=== PATIENT | male | born 1965 | race African-American/Black ===

== ENCOUNTER 2017-12-04 08:15 | Observation (INO) | payer SELFPAY ==
[2017-12-04] MEDS ORDERED: Lorazepam 2 MG/ML VIAL ONE (08:40)
[2017-12-04] MEDS ORDERED: levETIRAcetam In NaCl (Iso-Os) 1,500 MG in Premix Bag 1 BAG IVPB SCH (09:00)
[2017-12-04 09:03] LABS: #Lymphocytes 0.9 thou/uL (1.20-3.40); #Monocytes 1.1 thou/uL (0.11-0.59); #Neutrophils 7.9 thou/uL (1.40-6.50); %Eosinophils 0.3 % (0.0-10.0); %Lymphocytes 9.4 % (21.0-51.0); %Monocytes 10.6 % (0.0-10.0); %Neutrophils 79.6 % (42.0-75.0); Hemoglobin 15.1 g/dL (14.0-18.0); Mean Corpuscular HGB CONC 36.2 g/dL (32.0-36.0); Mean Platelet Volume 6.6 fL (7.4-10.4); Platelet Count 167 thou/uL (130-400); RBC Distribution Width 13.4 % (11.5-14.5); Red Blood Cell (RBC) Count 4.09 mill/uL (4.70-6.10); White Blood Cell (WBC) Count 9.9 thou/uL (4.8-10.8)
[2017-12-04 09:06] LABS: INR-International Normal Ratio 1.1; PTT 28.2 SEC (22.9-36.1); Prothrombin Time 14.2 SEC (12.0-14.7)
[2017-12-04 09:17] LABS: ALT (SGPT) 17 U/L (8-55); AST (SGOT) 38 U/L (5-34); Acetaminophen Less than 6.0 mcg/mL (10.0-30.0); Albumin 4.4 g/dL (3.5-5.0); Alcohol Less than 10 mg/dL (Less than 10); Alkaline Phosphatase 66 U/L (40-150); Anion Gap 18 mmol/L (10-20); BUN (Urea Nitrogen) 6 mg/dL (8.4-25.7); Bilirubin, Total 1.1 mg/dL (0.2-1.2); Calc. Creatinine Clearance 0 mL/min (70-130); Calcium 9.1 mg/dL (7.8-10.44); Carbon Dioxide 22 mmol/L (22-29); Chloride 95 mmol/L (98-107); Estimated GFR-MDRD Greater than 90; Globulin 4.4 g/dL (2.4-3.5); Glucose 96 mg/dL (70-105); Potassium 3.7 mmol/L (3.5-5.1); Protein, Total 8.8 g/dL (6.0-8.3); Salicylate Less than 8.0 mg/dL (15.0-30.0); Sodium 131 mmol/L (136-145)
[2017-12-04 10:43] LABS: Amphetamine Not Detected (NotDetected); Barbiturates Screen Not Detected (NotDetected); Benzodiazepine Screen Detected (NotDetected); Cocaine Metabolite Screen Not Detected (NotDetected); Medtox Control Line Valid? VALID (VALID); Medtox Reader # READER 1; Methadone Not Detected (NotDetected); Methamphetamine Not Detected (NotDetected); Opiate Screen Not Detected (NotDetected); Oxycodone Screen Not Detected (NotDetected); Phencyclidine (PCP) Not Detected (NotDetected); THC/Cannabinoid Screen Not Detected (NotDetected); Tricyclic Screen Not Detected (NotDetected)
[2017-12-04] MEDS ORDERED: Labetalol HCl 100 MG/20 ML VIAL ONE (10:56)
[2017-12-04] MEDS ORDERED: Sodium Chloride 0.9% 100 ML ONE (10:56)
[2017-12-04] MEDS ORDERED: cefTRIAXone\\ROCEPHIN 2 GM VIAL ONE (10:56)
[2017-12-04 11:04] LABS: Bilirubin Negative (Negative); Blood, Urine Moderate (Negative); Clarity CLEAR (Clear); Glucose, Urine (Dipstick) Negative (Negative); Leukocyte Negative (Negative); Nitrite Negative (Negative); Protein, Urine (Dipstick) Trace mg/dL (Neg-Trace); Specific Gravity, Urine 1.008 (1.002-1.036); pH, Urine 7.5 (5.0-9.0)
[2017-12-04 11:05] LABS: Bacteria/HPF None Seen HPF (None Seen); Hyaline Casts/LPF 0-3 HYALINE CAST LPF (0-3 Hyaline); RBC/HPF None Seen HPF (0-3); Squamous Epithelial None Seen HPF (0-3); WBC/HPF None Seen HPF (0-3)
--- NOTE | 2017-12-04 11:34 | RAD ---
CHEST ONE VIEW: History: 52-year-old male with history of seizure. FINDINGS: Monitor leads overlie the chest. Heart size is within normal limits. No confluent pneumonia, overt ed adelita, or pleural effusion. IMPRESSION: No acute intrathoracic disease. POS: [facility]
[2017-12-04 12:06] VITALS: BMI 26.6
[2017-12-04] MEDS ORDERED: Acetaminophen 325 MG TAB PO PRN (12:09)
[2017-12-04 12:59] LABS: Osmolality, Urine 416 mOsm/kg (300-900)
[2017-12-04 13:04] LABS: Sodium, Urine 168 mmol/L (Not Available)
[2017-12-04 13:11] LABS: Magnesium 1.7 mg/dL (1.6-2.6)
[2017-12-04] MEDS: Nicotine 14 MG PATCH TD SCH (13:19)
[2017-12-04 13:27] LABS: Phosphorus 1.6 mg/dL (2.3-4.7)
--- NOTE | 2017-12-04 14:15 | PDOC.FPRHP ---
- History of Present Illness Chief Complaint: Seizures History of Present Illness: Mr. Guan presents from [place] ER for status epilepticus. Significant other gives history, as pt is unable. Pt had 3 seizures before EMS was called. They were Tuesday at 20:00, 22:00 and 23:30. First two lasted 30 min. Third one lasted about one hour. Patient did not return to baseline in between each seizure. This was unusual because typically he comes out of one after 30 minutes. He couldn't talk and was staring, not responsive. Pt had another seizure with paramedics which was with 1 mg ativan. Pt has not been sick or had any complaints before this episode. Last seizure was 08/03/2018. Last time hospitalized for seizures was about 1 yr ago. Patient has longtime history of seizures, on keppra, supposed to take it BID. , Macey, knows he takes it every morning but unsure about pm dose. Pt has history of alcohol abuse. 3-6 beers/day. Had one beer yesterday. Has history of schizophrenia and bipolar. He hides medications/snacks etc from . Because of this, she is unsure of all his medications. At baseline, he often must be reminded to shower etc. Pt is trying to apply for disability. Cannot afford medications. ED Course: CT head ([place]), 500 keppra, 1mg ativan, 1.5g keppra, vanc/rocephin - Allergies/Adverse Reactions Allergies Allergy/AdvReac Type Severity Reaction Status Date / Time lisinopril Allergy Unverified 12/04/17 08:45 Penicillins Allergy Unverified 12/04/17 08:45 - Home Medications Medication Instructions Recorded Confirmed Type HYDROcodone/Acetaminophen 1 each PO Q6HR PRN 12/04/17 12/04/17 History [Hydrocodone-Acetamin 10-325 mg] OLANZapine [ZyPREXA] 5 mg PO DAILY 12/04/17 12/04/17 History amLODIPine Besylate [Norvasc] 10 mg PO DAILY 12/04/17 12/04/17 History levETIRAcetam [Keppra] 500 mg PO BID 12/04/17 12/04/17 History - History PMHx:HTN, chronic back pain 2/2 scoliosis, epileptic seizures, bipolar, schizophrenia PSHx: Unknown FHx:Unknown Social: Smoker, 1PPD for >9yrs. 3-6 beers per day, not use other liquor like in the past. No drug use. - Review of Systems General: reports: fatigue. denies: fever/chills, night sweats Eyes: denies: eye pain, vision changes ENT: denies: nasal congestion, rhinorrhea Respiratory: denies: cough, shortness of breath Cardiovascular: denies: chest pain, palpitation Gastrointestinal: denies: nausea, vomiting, diarrhea, abdominal pain Genitourinary: reports: incontinence (during seizure). denies: dysuria Skin: denies: rashes, lesions Musculoskeletal: reports: pain (back and neck), tenderness Neurological: reports: seizure, weakness Psychological: denies: anxiety, depression - Vital signs BP: 145/97 HR: 99 RR: 16 Tmax: 98.4 Pox: 99% on RA Wt: 81 kg - Physical Exam Constitutional: other (Lethargic, with back and neck pain, oriented only to person. Could not answer all questions appropriately.) HEENT: normocephalic and atraumatic, PERRLA, grossly normal vision, grossly normal hearing, MMM, oropharynx clear, other (lesions on both sides of tongue from biting during seizure) Heart: RRR, normal S1/S2, no murmurs/rubs/gallops, pulses present Lungs: CTAB, no respiratory distress Abdomen: soft, bowel sounds present, other (Diffusely TTP) Musculoskeletal: normal structure, normal tone, ROM grossly normal Neurological: CN II-XII intact, normal sensation Skin: capillary refill <2 seconds Heme/Lymphatic: no unusual bruising or bleeding, no purpura FMR H&P: Results - Labs Result Diagrams: 12/04/17 08:50 12/04/17 08:50 Lab results: WBC 9.9 thou/uL (4.8-10.8) 12/04/17 08:50 Hgb 15.1 g/dL (14.0-18.0) 12/04/17 08:50 Hct 41.8 % (42.0-52.0) L 12/04/17 08:50 MCV 102.0 fL (78.0-98.0) H 12/04/17 08:50 Plt Count 167 thou/uL (130-400) 12/04/17 08:50 Neutrophils % 79.6 % (42.0-75.0) H 12/04/17 08:50 Sodium 131 mmol/L (136-145) L 12/04/17 08:50 Potassium 3.7 mmol/L (3.5-5.1) 12/04/17 08:50 Chloride 95 mmol/L (98-107) L 12/04/17 08:50 Carbon Dioxide 22 mmol/L (22-29) 12/04/17 08:50 BUN 6 mg/dL (8.4-25.7) L 12/04/17 08:50 Creatinine 0.84 mg/dL (0.6-1.3) 12/04/17 08:50 Glucose 96 mg/dL (70-105) 12/04/17 08:50 Calcium 9.1 mg/dL (7.8-10.44) 12/04/17 08:50 Total Bilirubin 1.1 mg/dL (0.2-1.2) 12/04/17 08:50 AST 38 U/L (5-34) H 12/04/17 08:50 ALT 17 U/L (8-55) 12/04/17 08:50 Alkaline Phosphatase 66 U/L (40-150) 12/04/17 08:50 Ammonia 37 umol/L (18-72) 12/04/17 08:50 Serum Total Protein 8.8 g/dL (6.0-8.3) H 12/04/17 08:50 Albumin 4.4 g/dL (3.5-5.0) 12/04/17 08:50 Urine Ketones 15 mg/dL (Negative) H 12/04/17 10:22 Urine Blood Moderate (Negative) H 12/04/17 10:22 Urine Nitrite Negative (Negative) 12/04/17 10:22 Ur Leukocyte Esterase Negative (Negative) 12/04/17 10:22 Urine RBC None Seen HPF (0-3) 12/04/17 10:22 Urine WBC None Seen HPF (0-3) 12/04/17 10:22 Ur Squamous Epith Cells None Seen HPF (0-3) 12/04/17 10:22 Urine Bacteria None Seen HPF (None Seen) 12/04/17 10:22 - Radiology Interpretation CT scan - head Status: report reviewed by me (No acute process) Chest x-ray Status: report reviewed by me (no acute disease) FMR H&P: A/P - Problem List (1) Status epilepticus Current Visit: Yes Status: Acute Code(s): G40.901 - EPILEPSY, UNSP, NOT INTRACTABLE, WITH STATUS EPILEPTICUS (2) HTN (hypertension) Current Visit: Yes Status: Acute Code(s): I10 - ESSENTIAL (PRIMARY) HYPERTENSION (3) Hyponatremia Current Visit: Yes Status: Acute Code(s): E87.1 - HYPO-OSMOLALITY AND HYPONATREMIA (4) Alcohol abuse Current Visit: Yes Status: Acute Code(s): F10.10 - ALCOHOL ABUSE, UNCOMPLICATED (5) Tobacco abuse Current Visit: Yes Status: Acute Code(s): Z72.0 - TOBACCO USE - Plan Status epilepticus -pt has history of epileptic seizures. Unsure if taking keppra as prescribed. Consider meds vs alcohol withdrawal vs infection as possible contributory factors. Pt had one isolated fever 100.9 in ER, along with HTN and tachycardia. LP attempted but unsuccessful in ER. Patient does not have signs of meningismus. Vital sign abnormality could be from seizures. Considering no WBC elevation, no current concern for infection. Home medications are unknown. Reported pharmacy called which only had prescription for norco 10 and amlodipine (not filled). Unsure of home keppra dose or where pt is getting it. Pt received Keppra in ED so will not check keppra level. -CT head negative for acute process -will need to confirm meds in the morning -BMP in am -Consulted neurology. Greatly appreciate recommendations. -scheduled keppra -Mag, phos ordered -TSH normal -one dose vanc/rocephin in ER, discontinued -drug screen + for benzos HTN -systolic 170s on admission -was prescribed amlodipine 5mg daily, but did not fill this prescription -started on amlodipine, will monitor BPs Hyponatremia -Na+ 131 on admission -ordered studies to calculate Fena Alcohol abuse -3-6 beers daily. last drink 12/03. No known history of alcohol withdrawal -ASE protocol initiated Tobacco abuse -nicotine patch FMR H&P: Upper Level - Pertinent history 52M presents with cc of seizure. He had 3 seizure the previous day, lasting from 30 min to 1 hour. His described it as a seizure with jerking movement and a postictal state where he was confused. His last seizure was successfully treated with 1 mg of ativan by EMS. He has had seizure in the past requiring hospitalization. His states he takes Keppra BID, but is unsure if he is taking it as directed. When his pharmacy was called, they did not find any records of Keppra being dispensed. His history is pertinent for alcohol abuse 3-6 beers a day. His last beer was yesterday. His psych history is pertnient for schizophrenia and bipolar which he supposedly takes Zyprexa. Pharmacy could not find any record of that med. At baseline, his has to remind him to shower. See Repairer Controller Tester note ROS, PMHx, PShx, Social Hx, FHx and allergies. Physical Exam: Gen: Lethargic at time, and occasional inappropriate answer, but arousable. Post ativan treatment HEENT: No obvious trauma, PERRLA, grossly normal vision and hearing. Tongue with laceration on right side, hemostatic CV: RRR with normal s1/s2. No MGR Resp: CTA, no resp distress Abd: Soft, no guarding, normoactive MSK: Normal structure, tone Neuro: CN II-XII intact, normal sensation and strength 5/5 in upper and lower limb Pertinent Lab/Imaging Na 131 Glucose 96 [address]BC [address] Head: No acute abnormalities A/P 1. Reported Status epilepticus - Patient with history of seizure who had seizure and resolved with ativan administration. - Consider infection but no sign on exam of meningitis, without rigidity, improving of clinical condition after ativan. DC abx at this time. - Consider medication noncompliance. Start on Keppra. Unknown home dose. Advised to bring in medication bottle from home. - Consult Neurology for recs. Obs on stroke floor. 2. HTN - Elevated BP in ER, received 1x dose of labetalol. - Start patient on amlodipine, based on patient's pharmacy list 3. Hyponatremia - NA 131 on admission - Consider beer potomania, dehydration - Order FENA and osm study. 4. Alcohol abuse - 3 to 6 alcohol daily with last known drink day prior to admission. - ASE protocol. 5. Tobacco abuse - Nicotine patch, advise cessation - Plan Date/Time: 12/04/17 1410 I, [Santosh Ly], have evaluated this patient and agree with findings/plan as outlined by management retail intern resident. Pertinent changes/additions are listed here.
[2017-12-04] MEDS ORDERED: Amlodipine 5 MG TAB PO SCH (15:00)
[2017-12-04] MEDS ORDERED: Lorazepam 2 MG/ML VIAL SLOW IVP PRN (15:46)
[2017-12-04] MEDS: Multivitamins, Adult 10 ML, Folic Acid 1 MG, Thiamine HCl 100 MG in Dextrose 5 %-0.45 %... IV SCH (18:26)
[2017-12-04] MEDS: HYDROcodone/Acetaminophen 10/325 mg Tablet PO PRN (18:30)
[2017-12-04] MEDS: levETIRAcetam 500 MG TAB PO SCH (20:48)
[2017-12-04] MEDS ORDERED: levETIRAcetam 500 MG TAB PO SCH ×2 (21:00)
--- NOTE | 2017-12-04 21:53 | ADD-HP ---
ADDENDUM Please see the notes from Dr. Mack for which I agree. The patient was seen, evaluated, examined, and discussed with the residents. HISTORY OF PRESENT ILLNESS: This gentleman came in with basically multiple seizures last night. It is unclear if he is really compliant on his medicines. There is also some question if he may actuall y be withdrawing from alcohol, as his level was basically 0 and it sounds like he may drink 6 drinks a day, but he is very postictal in between these seizures, was taken to ER out of town and given Kepp ra, and then eventually was given more Keppra here. There was some concern about meningitis, althoug h he has had no headaches, neck pain other than chronic neck pain, or major fever, but in ER here, he had slight fever of 100.4. So, he was given vancomycin and Keppra, but he is describing no fever or any infectious type issues here. PAST MEDICAL HISTORY: Really otherwise is negative other than this, although there is some question about the possibility of him being schizophrenic or bipolar, but he is not a very good historian. MEDICATIONS: Xarelto, unclear exactly what he is on other than Keppra, but it sounds like he may be taking daily instead of twice daily. PAST SURGICAL HISTORY: All per the resident's history and physical. FAMILY HISTORY: All per the resident's history and physical. REVIEW OF SYSTEMS: All per the resident's history and physical. PHYSICAL EXAMINATION: VITAL SIGNS: Afebrile. Vital signs were stable. GENERAL: Alert and oriented x3. A little groggy, but certainly making sense. No apparent distress. HEENT: Within normal limits. CHEST: Clear. CARDIAC: Regular rate and rhythm. NEUROLOGIC: Currently is normal. LABORATORY AND X-RAY FINDINGS: Labs were reviewed. Pretty much negative other than sodium being a l ittle bit low at 131, but no elevated white count. ASSESSMENT: Seizure disorder and status epilepticus, now resolved. PLAN: Plan is to continue home Keppra and we will follow levels and I will get Neurology's opinion o n this. Again, we need to watch him for alcohol withdrawal and that why lorazepam ordered as needed and otherwise, I do not think there is any reason to consider this meningitis, so the antibiotics bradley greene started in the ER were discontinued.
[2017-12-05] MEDS: HYDROcodone/Acetaminophen 10/325 mg Tablet PO PRN (03:48)
--- NOTE | 2017-12-05 06:07 | PDOC.FM ---
- Subjective Subjective: 52 yo M admitted for status epilepticus. Feeling well this morning, back pain improved with hydrocodone. Med list was brought in last night, includes amlodipine 10, keppra 500 BID, olanzapine 5, and hydrocodone. He is more alert and oriented this morning and says he does not remember his seizures. Says his last seizure was 4 months ago. He also complains of a sore leg and says he bit his tongue during the seizures, and his mouth is sore. - Objective Vital Signs & Weight: Vital Signs (12 hours) Temp Pulse Resp BP Pulse Ox 12/05/17 04:00 98.0 F 87 16 129/82 96 12/05/17 00:00 98.1 F 89 16 118/71 97 12/04/17 20:00 98.2 F 95 16 114/73 96 Weight Weight 83.325 kg I&O: 12/03/17 12/04/17 12/05/17 06:59 06:59 06:59 Intake Total 700 Balance 700 Result Diagrams: 12/04/17 08:50 12/05/17 11:40 <Anne Stevenson - Last Filed: 12/05/17 14:15> - Objective Vital Signs & Weight: Vital Signs (12 hours) Temp Pulse Resp BP Pulse Ox 12/05/17 19:26 98.3 F 86 20 136/86 97 12/05/17 15:22 98.5 F 95 20 142/92 H 99 12/05/17 11:50 98.4 F 83 20 116/78 97 Weight Weight 83.325 kg I&O: 12/04/17 12/05/17 12/06/17 06:59 06:59 06:59 Intake Total 1050 Output Total 400 450 Balance 650 -450 Result Diagrams: 12/04/17 08:50 12/05/17 11:40 <Lorena Lozada - Last Filed: 12/05/17 21:08> Phys Exam - Physical Examination Constitutional: NAD AxO3 HEENT: PERRLA, moist MMs, sclera anicteric Neck: no nodes, supple Respiratory: no rales, no rhonchi, wheezing present Cardiovascular: RRR, no significant murmur Gastrointestinal: soft, no distention Musculoskeletal: no edema, pulses present Neurological: normal sensation, moves all 4 limbs Psychiatric: normal affect, A&O x 3 Skin: cap refill <2 seconds <Anne Stevenson - Last Filed: 12/05/17 14:15> Dx/Plan - Plan Plan: 1. Status epilepticus -Pt gives hx of taking keppra 500 BID and dilantin. Unable to confirm this with the pharmacy he mentioned. They do not have those meds on records and say he has not fillled any prescriptions there in a year. Need to confirm with pt that this is the pharmacy he is using. -CT head negative for acute process - CSF was unable to be obtained. Pt does not have meningismus at this time. -Consulted neurology. Appreciate recommendations. -scheduled keppra -Mag - 1.7, phos 1.6 --- see problem #7 below. -TSH normal -one dose vanc/rocephin in ER, discontinued -drug screen + for benzos (which he was given in ED) - At this time patient is alert and oriented x3. 2. HTN -systolic 170s on admission, 1x dose labetolol in ED -was started on amlodipine, based on patient's pharmacy list -will monitor BPs, currently stable 3. Hyponatremia -Na 131 on admission -Consider beer potomania, dehydration 4. Alcohol abuse -3-6 beers daily. last drink day prior to admission. No known history of alcohol withdrawal -ASE protocol initiated 5. Tobacco abuse -nicotine patch, advise cessation 6. Hypokalemia -Replaced with 40 of K -redraw BMP this afternoon 7. Hypophosphatemia -Phos: 1.6 -replaced with phos nak -Redraw BMP 8. Post-renal obstruction -Urine showed high ketones and was positive for moderate blood -Fena shows 4.1%, which indicates a post-renal cause -In/out liriano caths -Nursing communication to do serial bladder scans for post cath residuals -Strict I/Os <Anne Stevenson - Last Filed: 12/05/17 14:15> Attending Addendum - Attending Addendum Date/Time: 12/05/17 1012 I personally evaluated the patient and discussed the management with Dr. Bird I agree with the History, Examination, Assessment and Plan documented above with any addition or exceptions noted below- Patient without complaints. No further seizures since admission. Afebrile VSS. A/P: 1) Seizure disorder- patient on keppra and dilantin though states that he has not been on the dilantin for about 2-3 months. Loafed with keppra in ER and will resume hime dose. Will also restart dilantin. Case management to assist with transition to [facility]. <Lorena Lozada - Last Filed: 12/05/17 21:08>
[2017-12-05 06:27] LABS: Anion Gap 13 mmol/L (10-20); BUN (Urea Nitrogen) 5 mg/dL (8.4-25.7); Calc. Creatinine Clearance 111 mL/min (70-130); Calcium 8.8 mg/dL (7.8-10.44); Carbon Dioxide 27 mmol/L (22-29); Chloride 94 mmol/L (98-107); Estimated GFR-MDRD Greater than 90; Glucose 85 mg/dL (70-105); Sodium 131 mmol/L (136-145)
[2017-12-05 06:29] LABS: Potassium 2.7 mmol/L (3.5-5.1)
[2017-12-05] MEDS ORDERED: Potassium Chloride 20 MEQ TAB PO SCH ×2 (06:45→15:00)
[2017-12-05] MEDS: levETIRAcetam 500 MG TAB PO SCH ×2 (08:58→20:57)
[2017-12-05] MEDS: Amlodipine 5 MG TAB PO SCH (08:58)
[2017-12-05] MEDS: Enoxaparin Sodium 40 MG/0.4 ML SYRINGE SC SCH (08:58)
[2017-12-05 12:11] LABS: Anion Gap 12 mmol/L (10-20); BUN (Urea Nitrogen) 6 mg/dL (8.4-25.7); Calc. Creatinine Clearance 91 mL/min (70-130); Calcium 9.2 mg/dL (7.8-10.44); Carbon Dioxide 28 mmol/L (22-29); Chloride 95 mmol/L (98-107); Estimated GFR-MDRD 85; Glucose 69 mg/dL (70-105); Potassium 3.4 mmol/L (3.5-5.1); Sodium 132 mmol/L (136-145)
[2017-12-05] MEDS: Nicotine 14 MG PATCH TD SCH (14:13)
--- NOTE | 2017-12-05 16:41 | PDOC.EVN ---
Event Note - Event Note Event Note: Discussed further with patient where he is filling his prescriptions. Pt states that [facility] in [place] is assisting his payments for his medications besides his narcotics, and he fills them at [facility] on [address] in [place]. He also states he hasn't taken his dilantin for about 2 months because he started feeling dizzy on it. The pharmacy consultant confirmed that he is filling prescriptions for 100 mg dilantin TID, and Keppra 500 BID and last filled his dilantin September 21 for a 3mo supply. His regular doctor is Claudio Francis, and his psychiatrist is Dr. Elias at [facility]. Pt wishes to transition his care to [facility] because of his recent move.
[2017-12-05] MEDS: Multivitamins, Adult 10 ML, Folic Acid 1 MG, Thiamine HCl 100 MG in Dextrose 5 %-0.45 %... IV SCH (17:59)
--- NOTE | 2017-12-06 00:31 | CON ---
NEUROLOGIC CONSULTATION DATE OF CONSULTATION: 12/05/2017 CONSULTING PHYSICIAN: [facility]. IMPRESSION: 1. Chronic epilepsy. 2. History of closed head injury. PLAN: 1. Continue current doses of Dilantin and Keppra. 2. The patient can follow up with his neurologist in [place]. HISTORY OF PRESENT ILLNESS: Mr. Guan is a 52-year-old -[place] man with a past history of seizures dating back 7 years. He was injured on the job around 11 years ago when he was knocked unc onscious by a piece of equipment. He reportedly stayed in the hospital, but 2 months for rehabilitat ion and recovery. He had his first seizure 7 years ago and has been [place] [facility] [place] [facility] [place]. He reports being compliant with his medication, though at times, he has sandoval e difficulty obtaining it due to financial circumstances. He drinks on occasion and reports the last time he had anything to drink was 11/29. He came in after having a witnessed seizure. He was broug ht in by the [place] ambulance to the hospital. He had another seizure in the emergency room that w as witnessed by the ER physician. I was loaded with an extra 2000 mg of Keppra. He was admitted for observation and has been clinically stable since admission. ALLERGIES: LISINOPRIL, PENICILLIN. PAST MEDICAL HISTORY: As listed above, also includes hypertension. SOCIAL HISTORY: Occasional alcohol use, but no illicit drug use. FAMILY HISTORY: Noncontributory. REVIEW OF SYSTEMS: No complaint of headache, nausea, vomiting, vertigo, chest pain, or shortness of breath. PHYSICAL EXAMINATION: GENERAL: He is a well-nourished middle-aged man in no distress. HEENT: Pupils are equal and reactive. Conjunctivae clear. Oropharynx clear. NECK: Supple. EXTREMITIES: No cyanosis, clubbing, or edema. NEUROLOGIC: He is alert and appropriate. His speech is fluent and clear. Cranial nerves II through XII are intact. Motor exam showed symmetric strength. There is no tremor or dysmetria present. Th ere was no asterixis or tremor present. Sensation is intact to light touch. He can walk independent ly. IMAGING: CT scan of the brain without contrast was unremarkable. LABORATORY STUDIES: Reviewed. SUMMARY: This is a middle-aged man with a longstanding history of seizures. He had two breakthrough seizures prior to admission. He has been given an extra loading dose of Keppra. He seems to be cli nically stable. I would leave the management of his medications to his primary neurologist.
--- NOTE | 2017-12-06 06:03 | PDOC.FM ---
- Subjective Subjective: Pt ready to go home. Pt concerned about ride home. Told him he will likely go today, but needs to talk with case management first. Wish GERRY to [facility]. Will see case management today. Eating and drinking well, voiding normally. Labs stable. - Objective Vital Signs & Weight: Vital Signs (12 hours) Temp Pulse Resp BP Pulse Ox 12/06/17 03:10 98.4 F 84 20 133/83 97 12/06/17 00:20 98.5 F 110 H 20 141/101 H 93 L 12/05/17 20:57 98.5 F 110 H 20 12/05/17 19:26 98.3 F 86 20 136/86 97 Weight Weight 83.597 kg I&O: 12/04/17 12/05/17 12/06/17 06:59 06:59 06:59 Intake Total 1050 Output Total 400 450 Balance 650 -450 Result Diagrams: 12/04/17 08:50 12/06/17 06:03 <Anne Stevenson - Last Filed: 12/06/17 09:20> - Objective Vital Signs & Weight: Vital Signs (12 hours) Temp Pulse Resp BP BP Pulse Ox 12/06/17 09:06 86 128/90 12/06/17 08:59 98.5 F 86 20 12/06/17 07:28 98.5 F 86 20 128/90 99 Weight Weight 83.597 kg I&O: 12/05/17 12/06/17 12/07/17 06:59 06:59 06:59 Intake Total 1050 1112 Output Total 400 450 Balance 650 662 Result Diagrams: 12/04/17 08:50 12/06/17 06:03 <Lorena Lozada - Last Filed: 12/06/17 16:49> Phys Exam - Physical Examination Constitutional: NAD HEENT: moist MMs Neck: no nodes, supple Respiratory: no wheezing, no rales, no rhonchi, clear to auscultation bilateral Cardiovascular: RRR, no significant murmur, no rub Gastrointestinal: soft, no distention, positive bowel sounds Musculoskeletal: pulses present Neurological: moves all 4 limbs Psychiatric: normal affect, A&O x 3 Skin: no rash, normal turgor, cap refill <2 seconds <Anne Stevenson - Last Filed: 12/06/17 09:20> Dx/Plan - Plan Plan: 1. Status epilepticus, stable -Pt gives hx of taking keppra 500 BID and dilantin 100 mg TID. Able to confirm with [facility] pharmacy. -CT head negative for acute process - CSF was unable to be obtained. Pt does not have meningismus at this time. -Consulted neurology. Neurology does not wish to see him at this time due to compliance issues. -scheduled keppra and dilantin -TSH normal -one dose vanc/rocephin in ER, discontinued -drug screen + for benzos (which he was given in ED) 2. HTN -systolic 170s on admission, 1x dose labetolol in ED -was started on amlodipine, based on patient's pharmacy list -will monitor BPs, currently stable 3. Hyponatremia -Na 131 on admission -Consider beer potomania, dehydration 4. Alcohol abuse -3-6 beers daily. last drink day prior to admission. No known history of alcohol withdrawal -ASE protocol initiated 5. Tobacco abuse -nicotine patch, advise cessation 6. Hypokalemia -Replaced with 40 of K (12/05) -Improved today at 3.4 7. Hypophosphatemia -Phos: 1.6 on 12/05 -replaced with phos nak -Stable at 2.9 8. Post-renal obstruction -Urine showed high ketones and was positive for moderate blood -Fena shows 4.1%, which indicates a post-renal cause -In/out liriano caths with Serial bladder scan showed post void residual of 20 cc , so no urinary retention suspected at this time. -Strict I/Os Status: may discharge today, after seeing case management. Code: Full code <Anne Stevenson - Last Filed: 12/06/17 09:20> Attending Addendum - Attending Addendum Date/Time: 12/06/17 8007 I personally evaluated the patient and discussed the management with Dr. Johnna Stevenson I agree with the History, Examination, Assessment and Plan documented above with any addition or exceptions noted below- Patient denies any complaints. Wants to go home. Afebrile VSS. A/P: 1) Seizure d/o- continue keppra and dilantin. Stressed importance of needing both medications. Information for local resources for new PCP given to pateint as well as medication assistance. <Lorena Lozada - Last Filed: 12/06/17 16:49>
[2017-12-06 06:24] LABS: Anion Gap 10 mmol/L (10-20); BUN (Urea Nitrogen) 5 mg/dL (8.4-25.7); Calc. Creatinine Clearance 130 mL/min (70-130); Calcium 9.1 mg/dL (7.8-10.44); Carbon Dioxide 26 mmol/L (22-29); Chloride 100 mmol/L (98-107); Estimated GFR-MDRD Greater than 90; Glucose 98 mg/dL (70-105); Potassium 3.4 mmol/L (3.5-5.1); Sodium 133 mmol/L (136-145)
[2017-12-06 07:45] VITALS: BP 128/90; TEMP 98.5
[2017-12-06] MEDS: levETIRAcetam 500 MG TAB PO SCH (09:06)
[2017-12-06] MEDS: Amlodipine 5 MG TAB PO SCH (09:06)
[2017-12-06] MEDS: Enoxaparin Sodium 40 MG/0.4 ML SYRINGE SC SCH (09:07)
--- NOTE | 2017-12-07 11:30 | DIS-2 ---
DATE OF ADMISSION: 12/04/2017 DATE OF DISCHARGE: 12/06/2017 RESIDENT: Anne Stevenson M.D. ADMITTING ATTENDING: Dr Guillermo Raines DISCHARGE ATTENDING: Dr. Lorena Lozada NEUROLOGIST: Dr. Shawn Damon on 12/05/2017. PROCEDURES: 1. Chest x-ray on 12/04/2017. Impression: No acute intrathoracic disease. 2. A 12-lead EKG. Impression: Sinus tachycardia on 12/04/2017. PRIMARY DIAGNOSIS: Status epilepticus with history of seizures. SECONDARY DIAGNOSES: 1. Hyponatremia. 2. Hypophosphatemia. 3. Alcohol abuse. 4. Hypertension. 5. Chronic back pain. 6. Scoliosis. 7. Bipolar. 8. Schizophrenia. 9. Tobacco abuse. DISCHARGE MEDICATIONS: 1. Keppra 500 mg p.o. b.i.d. 2. Olanzapine 5 mg p.o. daily. 3. Hydrocodone/acetaminophen 10/325 mg 1 p.o. q.6h. p.r.n. 4. Amlodipine 10 mg p.o. daily. 5. Dilantin 100 mg t.i.d. p.o. DISCONTINUED MEDICATIONS: 1. Vancomycin, 12/04/2017-12/04/2017. 2. Rocephin, 12/04/2017 to 12/04/2017. HISTORY OF PRESENT ILLNESS AND HOSPITAL COURSE: This is a 52-year-old male presenting from [facility] [place] [facility] for status epilepticus. Significant other gave his history as the patient was unavailable. The patient had 3 seizures before ambulance was called. The patient did not return to baseline in between each seizure, this was unusual for him. He was given Ativan. Normally he is on Keppra and Dilantin for his seizures. His last seizure for which he was hospitalized was 1 year ago. The patient has a history of alcohol abuse, drinking 3-6 beers a day. He also has a history of schizophrenia and bipolar. He had a CT of his head in [place] which was negative. The patient was given Ativan and Keppra. He was also thought to have meningitis, but did not have nuchal rigidity so an LP was attempted, but was not able to get any CSF. He was covered for bacterial meningitis with Rocephin and vancomycin. He was admitted to observation for further workup treatment and a neuro consultation. Per the ED, he had more than 4 seizures in 24 hours without a clear return to baseline. Inpatient his home medicines were reconfirmed. He had stopped taking Dilantin for approximately 2 months because he reported feeling dizzy. He discontinued it on his own volition. He was also hypertensive on admission to the ER, so he had been given 1 dose of labetalol. He was restarted on his home amlodipine. There was also concern for hyponatremia. Sodium was 131 on admission. He reported drinking a lot of water and so we considered that maybe he had beer potomania. He also reported drinking 3-6 beers daily, but he has no known history of alcohol withdrawal and does not appear to show symptoms while inpatient. He was also treated for hypokalemia with 40 mEq of potassium and hypophosphatemia with N acetylcysteine. There was also concern for post-renal obstruction because his fractional excretion of sodium showed a 4.1% which indicated a possible post-renal cause. They did some serial bladder scans, but he did not have any residuals. Because of a recent move he desired to transition his care to [place] for both his psych as well as his Family Medicine doctor. He was stable upon discharge. DISPOSITION: Stable. DISCHARGE INSTRUCTIONS: 1. Location: Home. 2. Diet: Regular. 3. Activity: As tolerated. 4. Followup: Follow up within 1 week with your PCP. All of the patient's care was discussed with Dr. Lorena Lozada. RAMIN
== END 2017-12-06 10:27 | disposition home or self-care (01) ==
LOC: ERS 08:15 → INTOOBSV 11:58 → 2SE 11:58
PROVIDERS: ADMIT Family Medicine; ATTEND Family Medicine
DX: G40.901 Epilepsy, unspecified, not intractable, with status epilepticus (principal); E87.1 Hypo-osmolality and hyponatremia; E83.39 Other disorders of phosphorus metabolism; I10 Essential (primary) hypertension; M41.9 Scoliosis, unspecified; F20.9 Schizophrenia, unspecified; F10.10 Alcohol abuse, uncomplicated; F17.200 Nicotine dependence, unspecified, uncomplicated; E87.6 Hypokalemia; Z79.899 Other long term (current) drug therapy; Z88.8 Allergy status to other drugs, medicaments and biological substances; Z88.0 Allergy status to penicillin
CPT/HCPCS: 36415; 62270; 71045; 80048; 80177; 80185; 80306; 80307; 81003; 81015; 82140; 82570; 83735; 83930; 83935; 84100; 84300; 84443; 85610; 85730; 87040; 87086; 96365; 96366; 96367; 96372; 96375; G0378; J0696; J1650; J1953; J2060; J3370; J3411; J7042; J7050